=== PATIENT | male | born 1965 | race African-American/Black ===

== ENCOUNTER 2020-06-10 07:26 | Inpatient (IN) | payer MEDICARE ==
[~2020-06-10] VITALS: Ht 172.7 cm; Wt 99.3 kg
[2020-06-10 08:05] LABS: BASOPHILS % 0.9 % (0.0-2.0); HEMATOCRIT. 59.8 % (42.0-52.0); HEMOGLOBIN. 19.1 g/dL (14.0-18.0); LYMPHOCYTES % 50.2 % (20.0-50.0); MEAN CORPUSCULAR HEMOGLOBIN 28.8 pg (28.0-32.0); MEAN CORPUSCULAR VOLUME 90.4 fL (80.0-94.0); MEAN PLATELET VOLUME 9.7 fl (7.4-10.4); NEUTROPHILS % 36.9 % (40.0-76.0); PLATELET 313 x1000/uL (130-400); RED BLOOD CELL COUNT 6.62 mill/uL (4.7-6.1); RED CELL DISTRIBUTION WIDTH 15.8 % (11.6-14.6)
[2020-06-10 08:43] LABS: CHLORIDE 113 mEq/L (98-107)
[2020-06-10] MEDS ORDERED: DEXTROSE 50% WATER 50ML SYRINGE IV PRN (10:45)
[2020-06-10] MEDS ORDERED: LORAZEPAM 0.5MG TABLET PO PRN (10:45)
[2020-06-10] MEDS ORDERED: ONDANSETRON HCL 4MG/2ML INJ IV PRN (10:45)
[2020-06-10] MEDS ORDERED: ACETAMINOPHEN 325MG TABLET PO PRN (10:45)
[2020-06-10] MEDS ORDERED: CLONIDINE 0.1MG TABLET PO PRN (10:45)
[2020-06-10 11:33] LABS: BG BASE EXCESS -1.1 mmol/L (-2.0-2.0); BG CARBOXYHEMOGLOBIN 0.6 % (0.5-1.5); BG DEOXYHEMOGLOBIN 0.2 % (0.0-5.0); BG FRACTION INSPIRED OXYGEN 100; BG HCO3 ACT 24.3 mmol/L (22.0-26.0); BG METHEMOGLOBIN 0.2 % (0.0-1.5); BG OXYGEN SATURATION 99.8 % (92.0-98.5); BG PCO2 43.1 mmHg (35.0-45.0); BG PH 7.369 (7.350-7.450); BG PO2 521.6 mmHg (75.0-100.0); BG SAMPLE SITE RIGHT RADIAL; BG TOTAL HEMOGLOBIN 16.4 g/dL (12.0-18.0); BG TOTAL RESPIRATORY RATE 28 b/min; BG VENT MODE MASK - BIPAP
[2020-06-10] MEDS: METHYLPREDNISOLONE SOD SUCC 125 MG/2 ML VIAL IV SCH ×3 (11:35→23:03)
[2020-06-10] MEDS: HEPARIN 5000 UNITS/ML VIAL SUBCUT SCH ×2 (11:35→21:54)
[2020-06-10] MEDS: AZITHROMYCIN 500 MG in DEXT 5% WATER 250 ML IV SCH (11:35)
[2020-06-10] MEDS: BLOOD SUGAR DIAGNOSTIC STRIP TEST SCH ×3 (13:00→21:00)
[2020-06-10] MEDS: INSULIN LISPRO 100 UNITS/ML SUBCUT SCH ×3 (13:20→22:12)
[2020-06-10 15:20] VITALS: BP 107/78
[2020-06-10 16:00] VITALS: BP 137/77
[2020-06-10] MEDS ORDERED: LISI40TA13 PO (16:58)
[2020-06-10] MEDS ORDERED: LIRA0.6P2 SQ (17:00)
[2020-06-10] MEDS ORDERED: CARV3.1242 MT (17:03)
[2020-06-10 18:00] VITALS: BP 137/67
[2020-06-10] MEDS ORDERED: IPRATROPIUM/ALBUTEROL 0.5-3(2.5)MG/3ML NEB HHN SCH (18:00)
[2020-06-10 20:00] VITALS: BP 135/66
[2020-06-10] MEDS ORDERED: TRAZODONE HCL 50MG TABLET PO PRN (21:00)
[2020-06-10 22:00] VITALS: BP 136/65
[2020-06-11] VITALS: BP 145/78
[2020-06-11 02:00] VITALS: BP 145/71
[2020-06-11 04:00] VITALS: BP 132/72
[2020-06-11] MEDS: METHYLPREDNISOLONE SOD SUCC 125 MG/2 ML VIAL IV SCH ×2 (05:52→10:30)
[2020-06-11 06:00] VITALS: BP 112/72
[2020-06-11 07:16] LABS: BASOPHILS % 0.1 % (0.0-2.0); HEMATOCRIT. 45.2 % (42.0-52.0); HEMOGLOBIN. 14.8 g/dL (14.0-18.0); LYMPHOCYTES % 10.4 % (20.0-50.0); MEAN CORPUSCULAR VOLUME 88.5 fL (80.0-94.0); MONOCYTES % 1.7 % (2.0-8.0); NEUTROPHILS % 87.8 % (40.0-76.0); PLATELET 249 x1000/uL (130-400); RED BLOOD CELL COUNT 5.11 mill/uL (4.7-6.1); RED CELL DISTRIBUTION WIDTH 14.6 % (11.6-14.6)
[2020-06-11] MEDS: BLOOD SUGAR DIAGNOSTIC STRIP TEST SCH ×2 (07:30→12:56)
[2020-06-11 08:00] VITALS: BP 123/74
[2020-06-11] MEDS: INSULIN LISPRO 100 UNITS/ML SUBCUT SCH ×2 (08:00→13:00)
[2020-06-11 08:57] LABS: CHLORIDE 109 mEq/L (98-107)
[2020-06-11] MEDS: HEPARIN 5000 UNITS/ML VIAL SUBCUT SCH (10:36)
[2020-06-11 10:51] LABS: CREATINE KINASE 90 IU/L (39-308)
[2020-06-11] MEDS ORDERED: AMLODIPINE 10MG TABLET PO SCH (11:15)
[2020-06-11] MEDS ORDERED: HYDRALAZINE HCL 50MG TABLET PO NR (11:30)
[2020-06-11 12:43] LABS: CLARITY URINE CLEAR (CLEAR); COLOR URINE YELLOW (YELLOW); KETONES URINE TRACE (NEGATIVE); LEUKOCYTE ESTERASE URINE NEGATIVE (NEGATIVE); NITRITE URINE NEGATIVE (NEGATIVE); OCCULT BLOOD URINE NEGATIVE (NEGATIVE); PH URINE 5.5 (4.5-8.0); PROTEIN URINE NEGATIVE (NEGATIVE); SPECIFIC GRAVITY URINE 1.028 (1.005-1.030); UROBILINOGEN URINE 0.2 E.U./dL (0.2-1.0)
[2020-06-11] MEDS: AZITHROMYCIN 500 MG in DEXT 5% WATER 250 ML IV SCH (12:56)
[2020-06-11] MEDS ORDERED: HYDRALAZINE HCL 50MG TABLET PO SCH (14:00)
[2020-06-11 14:35] LABS: *BARBITURATES SCREEN URINE NEGATIVE (NEGATIVE); *COCAINE SCREEN URINE PRESUMTIVE POSITIVE (NEGATIVE); METHADONE URINE SCREEN NEGATIVE (NEGATIVE); OPIATES URINE SCREEN NEGATIVE (NEGATIVE)
[2020-06-11 14:36] LABS: *AMPHETAMINES SCREEN URINE NEGATIVE (NEGATIVE); CANNABINOID URINE SCREEN NEGATIVE (NEGATIVE); PHENCYCLIDINE URINE SCREEN NEGATIVE (NEGATIVE)
[2020-06-11 14:39] LABS: *BENZODIAZEPINES SCREEN URINE NEGATIVE (NEGATIVE)
[2020-06-11] MEDS ORDERED: METHYLPREDNISOLONE SOD SUCC 40 MG/ML VIAL IV SCH (18:00)
[2020-06-11] MEDS ORDERED: LOSARTAN POTASSIUM 25 MG TABLET PO SCH (21:00)
[2020-06-12] MEDS ORDERED: AZITHROMYCIN 500 MG TABLET PO SCH (09:00)
== END 2020-06-11 19:00 | disposition left against medical advice (07) | DRG 140 ==
LOC: ER 07:43 → EDBD 07:43 → 5EST 10:33 → EDBEDREQSVC 10:50 → ENRESERV 11:48
PROVIDERS: ADMIT Internal Medicine; ATTEND Internal Medicine
PROC: 5A09357 Assistance with Respiratory Ventilation, Less than 24 Consecutive Hours, Continuous Positive Airway Pressure (ICD-10-PCS; principal; 2020-06-10)
DX: J44.1 Chronic obstructive pulmonary disease with (acute) exacerbation (principal); J96.01 Acute respiratory failure with hypoxia; E66.9 Obesity, unspecified; N17.9 Acute kidney failure, unspecified; R79.89 Other specified abnormal findings of blood chemistry; E78.5 Hyperlipidemia, unspecified; F17.210 Nicotine dependence, cigarettes, uncomplicated; F12.10 Cannabis abuse, uncomplicated; D72.829 Elevated white blood cell count, unspecified; D75.1 Secondary polycythemia; I13.0 Hypertensive heart and chronic kidney disease with heart failure and stage 1 through stage 4 chronic kidney disease, or unspecified chronic kidney disease; Z20.822 Contact with and (suspected) exposure to COVID-19; I50.43 Acute on chronic combined systolic (congestive) and diastolic (congestive) heart failure; N18.9 Chronic kidney disease, unspecified; M10.9 Gout, unspecified; N39.0 Urinary tract infection, site not specified; E11.22 Type 2 diabetes mellitus with diabetic chronic kidney disease; Z68.33 Body mass index [BMI] 33.0-33.9, adult; Z71.51 Drug abuse counseling and surveillance of drug abuser; Z91.19 Patient's noncompliance with other medical treatment and regimen; Y92.89 Other specified places as the place of occurrence of the external cause; Z79.899 Other long term (current) drug therapy; J06.9 Acute upper respiratory infection, unspecified
CPT/HCPCS: 36415; 36600; 71045; 76770; 80053; 80305; 81003; 82375; 82550; 82805; 82962; 83036; 83735; 83880; 84484; 85025; 87426; 93005; 93306; 94660; 99291; J0456; J1644; J1815; J2930; J7060

== ENCOUNTER 2020-12-28 07:12 | Inpatient (IN) | payer MEDICAID, MEDICARE ==
[~2020-12-28] VITALS: Ht 182.9 cm; Wt 98.9 kg
[~2020-12-28 07:12] MED LIST: CARV3.1242 MT; LIRA0.6P2 SQ; LISI40TA13 PO
[2020-12-28] MEDS ORDERED: ALBUTEROL (0.083%) 2.5MG/3ML NEB HHN STA (07:16)
[2020-12-28] MEDS ORDERED: MAGNESIUM 2 G PREMIX 50 ML IV STA (07:16)
[2020-12-28] MEDS ORDERED: IPRATROPIUM BROMIDE (0.02%) 0.5MG/2.5ML NEB HHN STA (07:16)
[2020-12-28 07:34] LABS: BASOPHILS % 0.8 % (0.0-2.0); EOSINOPHILS % 2.1 % (0.0-5.0); HEMATOCRIT. 52.6 % (42.0-52.0); HEMOGLOBIN. 17.3 g/dL (14.0-18.0); LYMPHOCYTES % 36.3 % (20.0-50.0); MEAN CORPUSCULAR HEMOGLOBIN 29.4 pg (28.0-32.0); MEAN CORPUSCULAR VOLUME 89.6 fL (80.0-94.0); MEAN PLATELET VOLUME 9.5 fl (7.4-10.4); MONOCYTES % 7.9 % (2.0-8.0); NEUTROPHILS % 52.9 % (40.0-76.0); PLATELET 349 x1000/uL (130-400); RED BLOOD CELL COUNT 5.87 mill/uL (4.7-6.1)
[2020-12-28 07:50] LABS: CHLORIDE 108 mEq/L (98-107)
[2020-12-28 09:24] LABS: BG BASE EXCESS -2.5 mmol/L (-2.0-2.0); BG CARBOXYHEMOGLOBIN 2.9 % (0.5-1.5); BG DEOXYHEMOGLOBIN 0.3 % (0.0-5.0); BG HCO3 ACT 23.6 mmol/L (22.0-26.0); BG METHEMOGLOBIN 0.3 % (0.0-1.5); BG OXYGEN SATURATION 99.7 % (92.0-98.5); BG OXYHEMOGLOBIN 96.5 % (94.0-97.0); BG PCO2 45.6 mmHg (35.0-45.0); BG PH 7.332 (7.350-7.450); BG SAMPLE SITE RIGHT BRACHIAL; BG TOTAL HEMOGLOBIN 15.6 g/dL (12.0-18.0); BG VENT MODE MASK - BIPAP
[2020-12-28] MEDS ORDERED: ACETAMINOPHEN 325MG TABLET PO PRN (12:15)
[2020-12-28] MEDS ORDERED: ONDANSETRON HCL 4MG/2ML INJ IV PRN (12:15)
[2020-12-28 13:00] VITALS: BP 146/94
[2020-12-28] MEDS ORDERED: LEVOFLOXACIN 500MG PREMIX 100 ML IV SCH (13:00)
[2020-12-28] MEDS ORDERED: INFLUENZA VACCINE 05/PF 0.5 ML SYRINGE IM ONE (13:30)
[2020-12-28] MEDS ORDERED: PNEUMOCOCCAL 23-VAL P-SAC VAC 0.5 ML IM ONE (13:30)
[2020-12-28] MEDS: METHYLPREDNISOLONE SOD SUCC 40 MG/ML VIAL IV SCH ×2 (13:50→21:14)
[2020-12-28] MEDS: FAMOTIDINE 20MG TABLET PO SCH ×2 (13:50→21:14)
[2020-12-28 14:00] VITALS: BP 139/90
[2020-12-28] MEDS: IPRATROPIUM/ALBUTEROL 0.5-3(2.5)MG/3ML NEB HHN SCH ×2 (15:39→21:09)
[2020-12-28 16:00] VITALS: BP 133/73
[2020-12-28] MEDS ORDERED: IPRATROPIUM/ALBUTEROL 0.5-3(2.5)MG/3ML NEB HHN SCH (16:00)
[2020-12-28] MEDS: LEVOFLOXACIN 500MG PREMIX 100 ML IV SCH (17:08)
[2020-12-28] MEDS: HYDROCODONE/ACETAMINOPHEN 10/325MG TABLET PO PRN (18:46)
[2020-12-28 20:00] VITALS: BP 154/96
[2020-12-28] MEDS ORDERED: NALOXONE HCL 0.4MG/ML VIAL IV PRN (20:15)
[2020-12-28] MEDS ORDERED: FAMOTIDINE 20MG TABLET PO SCH (21:00)
[2020-12-29] VITALS: BP 153/67
[2020-12-29] MEDS: IPRATROPIUM/ALBUTEROL 0.5-3(2.5)MG/3ML NEB HHN SCH ×4 (00:27→12:25)
[2020-12-29] MEDS: HYDROCODONE/ACETAMINOPHEN 10/325MG TABLET PO PRN ×3 (00:58→12:09)
[2020-12-29 03:55] VITALS: BP 131/82
[2020-12-29] MEDS: METHYLPREDNISOLONE SOD SUCC 40 MG/ML VIAL IV SCH (06:27)
[2020-12-29 08:00] VITALS: BP 158/90
[2020-12-29] MEDS: FAMOTIDINE 20MG TABLET PO SCH (08:11)
[2020-12-29] MEDS ORDERED: AMLODIPINE 2.5MG TABLET PO SCH ×2 (09:00)
[2020-12-29] MEDS: LEVOFLOXACIN 500MG PREMIX 100 ML IV SCH (11:00)
[2020-12-29 11:45] VITALS: BP 150/84
[2020-12-29] MEDS ORDERED: [UNRECOGNIZED DRUG - CODE] PO (12:44)
[2020-12-29] MEDS ORDERED: HYDR25TA MT (12:45)
[2020-12-29] MEDS ORDERED: PIOG30TA71 MT (12:47)
[2020-12-29] MEDS ORDERED: ALBU2.5V13 NEB (12:49)
[2020-12-29] MEDS ORDERED: ATOR20TA65 MT (12:50)
[2020-12-29] MEDS ORDERED: ASPI-1497 MT (12:50)
[2020-12-29] MEDS ORDERED: P EP PO (12:51)
[2020-12-29] MEDS ORDERED: DOCU-150 MT (12:52)
[2020-12-29 12:54] LABS: *AMPHETAMINES SCREEN URINE NEGATIVE (NEGATIVE); *BARBITURATES SCREEN URINE NEGATIVE (NEGATIVE)
[2020-12-29] MEDS ORDERED: ALBU6.7H9 INH (12:54)
[2020-12-29 12:55] LABS: *BENZODIAZEPINES SCREEN URINE NEGATIVE (NEGATIVE); *COCAINE SCREEN URINE PRESUMTIVE POSITIVE (NEGATIVE); CANNABINOID URINE SCREEN NEGATIVE (NEGATIVE); METHADONE URINE SCREEN NEGATIVE (NEGATIVE); OPIATES URINE SCREEN PRESUMTIVE POSITIVE (NEGATIVE); PHENCYCLIDINE URINE SCREEN NEGATIVE (NEGATIVE)
[2020-12-29] MEDS ORDERED: HYDR-4001 MT (12:55)
[2020-12-29] MEDS ORDERED: LORA10TA7 MT (12:56)
[2020-12-29] MEDS ORDERED: LATA2.5D14 EACHEYE (12:56)
[2020-12-29] MEDS ORDERED: KETO5DRO7 EACHEYE (12:56)
[2020-12-29] MEDS ORDERED: MIRT-89 MT (12:57)
[2020-12-29] MEDS ORDERED: OMEP20CA14 MT (12:57)
[2020-12-29] MEDS ORDERED: TRIA16.99 BOTHNSTRLS (12:58)
[2020-12-29] MEDS ORDERED: ZIPR20CA2 MT (12:59)
[2020-12-29] MEDS ORDERED: ZOLP10TA2 MT (12:59)
[2020-12-29 13:01] VITALS: BP 150/84
[2020-12-29] MEDS ORDERED: P20 MT (15:46)
[2020-12-29] MEDS ORDERED: ALBU18HF2 IH (15:46)
[2020-12-29] MEDS ORDERED: LOSA100T32 MT (15:46)
[2020-12-29] MEDS ORDERED: LEVO500T89 MT (15:46)
[2020-12-29] MEDS ORDERED: CARV3.1242 MT (15:46)
[2020-12-29] MEDS ORDERED: FLUT1DIS3 INH (15:46)
== END 2020-12-29 13:42 | disposition home or self-care (01) | DRG 140 ==
LOC: ER 07:19 → ENRESERV 11:32 → 5EST 12:15 → CANBEDREQ 22:43
PROVIDERS: ADMIT Internal Medicine; ATTEND Internal Medicine
PROC: 5A09357 Assistance with Respiratory Ventilation, Less than 24 Consecutive Hours, Continuous Positive Airway Pressure (ICD-10-PCS; principal; 2020-12-28)
DX: J44.1 Chronic obstructive pulmonary disease with (acute) exacerbation (principal); J96.00 Acute respiratory failure, unspecified whether with hypoxia or hypercapnia; E87.8 Other disorders of electrolyte and fluid balance, not elsewhere classified; I50.30 Unspecified diastolic (congestive) heart failure; I11.0 Hypertensive heart disease with heart failure; Z20.822 Contact with and (suspected) exposure to COVID-19; F17.210 Nicotine dependence, cigarettes, uncomplicated; F14.90 Cocaine use, unspecified, uncomplicated; J68.0 Bronchitis and pneumonitis due to chemicals, gases, fumes and vapors; Y92.89 Other specified places as the place of occurrence of the external cause; Z79.899 Other long term (current) drug therapy; Z71.51 Drug abuse counseling and surveillance of drug abuser
CPT/HCPCS: 36415; 36600; 71045; 80053; 80305; 82375; 82805; 82962; 83880; 84484; 85025; 87426; 87804; 90686; 90732; 93005; 93306; 94640; 94644; 94660; 99285; J1956; J2920; J3475